=== PATIENT | male | born 1965 | race Caucasian/White ===

== ENCOUNTER 2016-11-19 12:16 | Emergency (ER) | payer OTHER ==
[~2016-11-19] VITALS: Ht 185.4 cm; Wt 81.6 kg
[~2016-11-19 12:16] MED LIST: ASPI-378 PO; BUS10T PO; LOR05T PO; SIMV-8 PO
[2016-11-19 13:17] VITALS: BP 124/87
== END 2016-11-19 13:37 | disposition home or self-care (01) ==
LOC: ER 12:20
DX: S16.1XXA Strain of muscle, fascia and tendon at neck level, initial encounter (principal); G89.29 Other chronic pain; M54.42 Lumbago with sciatica, left side; M54.41 Lumbago with sciatica, right side; E78.5 Hyperlipidemia, unspecified; X58.XXXA Exposure to other specified factors, initial encounter; Y93.89 Activity, other specified; Y99.8 Other external cause status; Y92.89 Other specified places as the place of occurrence of the external cause; Z76.0 Encounter for issue of repeat prescription; Z87.891 Personal history of nicotine dependence; Z79.82 Long term (current) use of aspirin

== ENCOUNTER 2017-02-27 21:15 | Emergency (ER) | payer MEDICAID, OTHER ==
[~2017-02-27] VITALS: Ht 185.4 cm; Wt 81.6 kg
[2017-02-27 21:52] VITALS: BP 124/80
== END 2017-02-28 01:50 | disposition home or self-care (01) ==
LOC: ER 21:18
DX: K02.9 Dental caries, unspecified (principal); K04.7 Periapical abscess without sinus; E78.5 Hyperlipidemia, unspecified